=== PATIENT | female | born 1975 | race Caucasian/White ===

== ENCOUNTER → 2017-05-18 | Outpatient (CLI) | payer BC ==
[2015-03-30 14:15] VITALS: BP 114/56
[~2017-05-18] MED LIST: CYAN10005 PO; HYDR-971 PO; NAPR500T PO; PROG100C2 PO; VITAMIN D3 PO; [UNRECOGNIZED DRUG - CODE] PO; [UNRECOGNIZED DRUG - OTHER] PO
--- NOTE | 2017-05-19 13:00 | KCIC ---
Bilateral digital screening mammograms: Reason for examination: Routine screening. No previous examinations available for comparison. Baseline exam. The skin and nipples show no abnormalities. No abnormal axillary lymph nodes are seen. The breast parenchyma is heterogeneously dense. (Breast density: Category C.) There is a small nodular density posterior superiorly in the left breast on oblique view consistent with intramammary lymph node. There are no other dominant masses, suspicious calcifications or architectural distortion. Impression: No evidence of malignancy. Recommend routine screening. Your patient's mammogram demonstrates that she has dense breast tissue (breast density category C or D), which could hide abnormalities, and if she has other risk factors for breast cancer that have been identified, she might benefit from supplemental screening tests that may be suggested by you as her ordering physician. Dense breast tissue, in and of itself, is a relatively common condition. Therefore, this information is not provided to cause undue concern, but rather to raise your awareness and to promote discussion with your patient regarding the presence of other risk factors, in addition to dense breast tissue. Your patient's mammography results will be sent to her. BI-RAD Category 2: Benign. "Our facility is accredited by the [employer] Mammography [employer]." This patient's information has been entered into a reminder system for the patient to be notified with the results of her examination and a target date for the next mammogram. Electronically signed by: Janine Ji MD (05/19/2017 12:57 PM) [id number]
== END | disposition home or self-care (01) ==
LOC: KCIC MAMMO 15:33
PROVIDERS: ATTEND Family Medicine
DX: Z12.31 Encounter for screening mammogram for malignant neoplasm of breast (principal)
CPT/HCPCS: G0202; 77067

== ENCOUNTER → 2017-06-09 | Outpatient (CLI) | payer BC ==
[2015-03-30 14:15] VITALS: BP 114/56
[2017-06-09 15:14] LABS: BARBITURATES NEG (NEG); BENZODIAZEPINES NEG (NEG); CANNABINOIDS NEG (NEG); COCAINE NEG (NEG); METHADONE NEG (NEG); OPIATES NEG (NEG); PHENCYCLIDINE NEG (NEG)
[2017-06-09 15:53] LABS: POTASSIUM 3.9 mmol/L (3.5-5.1)
== END | disposition home or self-care (01) ==
LOC: LAB 14:26
PROVIDERS: ATTEND Psychiatry & Neurology Neurology
DX: R56.9 Unspecified convulsions (principal)
CPT/HCPCS: 36415; 80051; 80307; 82607; 82947; 84443; G0479

== ENCOUNTER → 2017-06-16 | Outpatient (CLI) | payer BC ==
[2015-03-30 14:15] VITALS: BP 114/56
--- NOTE | 2017-06-19 16:28 | EEG ---
DATE OF SERVICE: 06/16/2017 DATE OF SERVICE: 06/16/2017 EEG NUMBER: [id number] OBJECTIVE: This is a 41-year-old female patient with history of seizure or seizure-like episodes. EEG was requested to evaluate cerebral activity and seizure activity. METHODS: Twenty electrodes were applied according to the international 10-20 electrode placement system. EKG monitoring, hyperventilation, intermittent photic stimulation, monopolar and bipolar montages are routinely utilized. The record was obtained on a digital system with video monitoring. FINDINGS: 1. Background: The patient was recorded in the awake and drowsy states. No actual sleep state was recorded. The overall background amplitude is 10-30 microvolts. A posterior dominant rhythm of 8 Hz is observed. 2. Abnormalities: No specific epileptiform discharge or electrographic seizure is seen. No focal or diffuse slowing. 3. Activation: Hyperventilation was performed with good efforts and normal response. Intermittent photic stimulation was performed with photic driving. No specific epileptiform discharge or electrographic seizure induced by hyperventilation or intermittent photic stimulation. IMPRESSION: This EEG is a normal study for the awake and drowsy states. No actual sleep state was recorded. No focal, lateralizing, specific epileptiform discharge or electrographic seizure is seen; however, a normal EEG does not rule out seizure. CONCHITA BRAXTON MD DR: RASHID/raj JOB#: [id number] / [id number] MARK
== END | disposition home or self-care (01) ==
LOC: RT 07:28
PROVIDERS: ATTEND Psychiatry & Neurology Neurology
DX: R56.9 Unspecified convulsions (principal); R06.4 Hyperventilation
CPT/HCPCS: 95816

== ENCOUNTER → 2017-10-08 | Outpatient (CLI) | payer BC | END | disposition home or self-care (01) | LOC: ECHO 13:30 | DX: R55 Syncope and collapse (principal) | CPT/HCPCS: 93306 ==

== ENCOUNTER → 2019-06-20 | Outpatient (CLI) | payer BC ==
[2015-03-30 14:15] VITALS: BP 114/56
[~2019-06-20] MED LIST changes: +CYAN-25 PO; -CYAN10005 PO; +HYDR-3164 PO; -HYDR-971 PO; +NAPR-683 PO; -NAPR500T PO; +PROG100C10 PO; -PROG100C2 PO
--- NOTE | 2019-06-20 16:06 | KCIC ---
EXAM: Pelvic ultrasound HISTORY: Pelvic pain and cramping. COMPARISON: 12/12/1949. FINDINGS: Sonographic evaluation of the pelvis was performed transabdominally and transvaginally. The uterus is anteverted and measures 5.2 x 2.8 x 2.1 cm. The endometrial stripe measures 2 mm. No masses are identified. A small amount of free pelvic fluid is likely physiologic. The right ovary measures 2.4 x 2.2 x 2.1 cm. The left ovary measures 2.5 x 2.0 x 1.5 cm. There is normal Doppler flow bilaterally. There are no suspicious lesions. IMPRESSION: 1. No cause for pain is identified. Electronically signed by: Esteban Thurston MD (06/20/2019 4:03 PM) [facility]
--- NOTE | 2019-06-20 17:05 | KCIC ---
Bilateral digital screening mammograms with 3-D tomosynthesis: Reason for examination: Routine screening. Comparison is made to previous study dated 05/18/2017. Bilateral mammograms in CC and oblique projections were obtained and reviewed on the workstation. Interpretation was made with the benefit of CAD. The skin and nipples show no abnormalities. No abnormal axillary lymph nodes are seen. The breast parenchyma is heterogeneously dense. (Breast density: Category C.) There appears to be a nodular density in the central 6:00 C position of the right breast. Recommend further evaluation with ultrasound. There are no other dominant masses, suspicious calcifications or architectural distortion. Impression: Small nodular density posterior centrally in the 6:00 C position of the right breast. Recommend further evaluation with ultrasound. Your patient's mammogram demonstrates that she has dense breast tissue (breast density category C or D), which could hide abnormalities, and if she has other risk factors for breast cancer that have been identified, she might benefit from supplemental screening tests that may be suggested by you as her ordering physician. Dense breast tissue, in and of itself, is a relatively common condition. Therefore, this information is not provided to cause undue concern, but rather to raise your awareness and to promote discussion with your patient regarding the presence of other risk factors, in addition to dense breast tissue. Your patient's mammography results will be sent to her. BI-RAD Category 0: Incomplete. Needs additional imaging evaluation. "Our facility is accredited by the [employer] Mammography [employer]." This patient's information has been entered into a reminder system for the patient to be notified with the results of her examination and a target date for the next mammogram. Electronically signed by: Janine Ji MD (06/20/2019 5:03 PM) [id number]
== END | disposition home or self-care (01) ==
LOC: KCIC US 15:12
PROVIDERS: ATTEND Nurse Practitioner Family
DX: Z12.31 Encounter for screening mammogram for malignant neoplasm of breast (principal); N64.89 Other specified disorders of breast; R10.2 Pelvic and perineal pain; Z78.0 Asymptomatic menopausal state
CPT/HCPCS: 76830; 76856; 77067

== ENCOUNTER → 2019-07-06 | Outpatient (CLI) | payer BC ==
[2015-03-30 14:15] VITALS: BP 114/56
--- NOTE | 2019-07-06 17:11 | KCIC ---
Right breast ultrasound: Reason for examination: Nodular density on screening mammogram. Comparison is made to mammographic exam dated 06/20/2019. Ultrasound examination of the right breast and axilla was performed. In the 5:30 position 4 cm from the nipple adjacent to the chest wall, there is a 4.1 mm hypoechoic fibrocystic type lesion which would correspond with the area of mammographic concern. No other cystic or solid lesions are seen. No abnormal appearing lymph nodes are seen in the axilla. IMPRESSION: Small benign-appearing fibrocystic lesion at the 5:30 position. Recommend 6 month follow-up with right breast mammograms and ultrasound. BI-RADS Category 3: Probably Benign. "Our facility is accredited by the [employer] Mammography [employer]." This patient's information has been entered into a reminder system for the patient to be notified with the results of her examination and a target date for the next mammogram. Electronically signed by: Janine Ji MD (07/06/2019 5:08 PM) [facility]
== END | disposition home or self-care (01) ==
LOC: KCIC US 13:03
PROVIDERS: ATTEND Nurse Practitioner Family
DX: N64.89 Other specified disorders of breast (principal)
CPT/HCPCS: 76641

== ENCOUNTER → 2020-01-17 | Outpatient (CLI) | payer BC ==
[2015-03-30 14:15] VITALS: BP 114/56
--- NOTE | 2020-01-17 14:56 | RAD ---
EXAMINATION: DIGITAL DIAGNOSTIC RT, BREAST RIGHT, 01/17/2020 1:15 PM CLINICAL INDICATION: Six-month follow-up of probably benign fibrocystic lesion at 5:30 in the right breast. COMPARISON: Right breast ultrasound 07/06/2019 and mammogram 06/20/2019 MAMMOGRAPHIC FINDINGS: Full field CC and MLO views were obtained. Tomosynthesis was performed. The right breast is heterogeneously dense, which may obscure small masses. The small mass at 6:00 in the right breast on prior exam is no longer definitively visualized. There is no new mass or suspicious calcification. SONOGRAPHIC FINDINGS: Grayscale ultrasound imaging of the right breast was performed at 5-6 o'clock. There is no cystic or solid mass identified. Normal fibroglandular tissue seen. IMPRESSION: 1. . The previously seen probably-benign 4 mm mass is no longer visualized by mammogram or ultrasound. No evidence of malignancy. 2. BI-RADS 1-Negative. 3. Annual screening mammogram is recommended in May. The patient will receive a reminder letter by mail when she is due for her next exam. Findings and recommendations were discussed with the patient at the time of the exam by . Electronically signed by: Ira June MD (01/17/2020 2:53 PM) [id number]
== END | disposition home or self-care (01) ==
LOC: MAMMO 11:28
PROVIDERS: ATTEND Nurse Practitioner Family
DX: R92.2 Inconclusive mammogram (principal)
CPT/HCPCS: 76641; 77065

== ENCOUNTER → 2021-09-23 | Outpatient (CLI) | payer BC ==
[2015-03-30 14:15] VITALS: BP 114/56
--- NOTE | 2021-09-23 13:01 | KCIC ---
Bilateral digital screening mammograms with 3-D tomosynthesis: Reason for examination: Routine screening. Comparison is made to previous studies dated back to 05/18/2017. Interpretation was made with the benefit of CAD. The skin and nipples show no abnormalities. No abnormal axillary lymph nodes are seen. The breast par enchyma is heterogeneously dense. (Breast density: Category C.) There are no dominant masses, suspici ous calcifications or architectural distortion. Impression: No evidence of malignancy. Recommend routine screening. Your patient's mammogram demonstrates that she has dense breast tissue (breast density category C or D), which could hide abnormalities, and if she has other risk factors for breast cancer that have bee n identified, she might benefit from supplemental screening tests that may be suggested by you as her ordering physician. Dense breast tissue, in and of itself, is a relatively common condition. Therefo re, this information is not provided to cause undue concern, but rather to raise your awareness and t o promote discussion with your patient regarding the presence of other risk factors, in addition to d ense breast tissue. Your patient's mammography results will be sent to her. BI-RAD Category 2: Benign. "Our facility is accredited by the [employer] Mammography [employer]." This patient's information has been entered into a reminder system for the patient to be notified wit h the results of her examination and a target date for the next mammogram. Electronically signed by: Janine Ji MD (09/23/2021 12:59 PM) [id number]
== END ==
LOC: KCIC MAMMO 12:18
PROVIDERS: ATTEND Nurse Practitioner Family
DX: Z12.31 Encounter for screening mammogram for malignant neoplasm of breast (principal)
CPT/HCPCS: 77067

== ENCOUNTER → 2021-10-11 | Outpatient (CLI) | payer BC ==
[2015-03-30 14:15] VITALS: BP 114/56
--- NOTE | 2021-10-11 12:14 | RAD ---
EXAM: Left thigh sonogram. HISTORY: Palpable lump. TECHNIQUE: Sonographic imaging of the left thigh the site of palpable concern was performed. COMPARISON: None. FINDINGS: There is a circumscribed nonvascular nodule isoechoic to fat within the anterior mid left t high soft tissues measuring 4.3 x 1.8 x 0.9 cm. This corresponds with the site of palpable concern. IMPRESSION: 4.3 cm suspected lipoma within the left thigh subcutis fat at the site of palpable concer n. Continued clinical follow-up of palpable abnormalities is recommended. Repeat imaging can be perfo rmed if there is a change in physical exam findings or continuing concern. Electronically signed by: Lluvia Crews MD (10/11/2021 12:11 PM) [id number]
== END ==
LOC: US 11:24
PROVIDERS: ATTEND Nurse Practitioner Family
DX: M79.89 Other specified soft tissue disorders (principal)
CPT/HCPCS: 76881

== ENCOUNTER → 2021-11-14 | Outpatient (CLI) | payer BC ==
[2015-03-30 14:15] VITALS: BP 114/56
--- NOTE | 2021-11-14 15:45 | KCIC ---
EXAM: Left lower extremity sonogram. HISTORY: Soft tissue mass. TECHNIQUE: Sonographic imaging of the left thigh at the site of a reported mass was performed. COMPARISON: 10/11/2021. FINDINGS: There is an elongated circumscribed nonvascular mass isoechoic to fat within the left media l thigh measuring 4.4 x 2.9 x 0.7 cm, previously measuring 4.4 x 1.8 x 0.9 cm. The interval change in transverse dimension is likely due to differences in imaging technique. The imaging appearance favor s a lipoma. IMPRESSION: 4.4 cm suspected lipoma within the left thigh soft tissues. Continued clinical follow-up of palpable abnormalities is recommended. Repeat imaging can be performed if there is continuing conc cristofer or change in physical exam findings. Electronically signed by: Lluvia Crews MD (11/14/2021 3:42 PM) [id number]
== END ==
LOC: KCIC US 15:15
PROVIDERS: ATTEND Nurse Practitioner Family
DX: M79.89 Other specified soft tissue disorders (principal)
CPT/HCPCS: 76881